=== PATIENT | male | born 1990 | race Caucasian/White ===

== ENCOUNTER 2022-05-20 18:55 | Emergency (ER) | payer OTHER ==
[2022-05-20] MEDS ORDERED: Ondansetron 4 MG/2 ML SDV IVPUSH ONE (20:49)
[2022-05-20] MEDS ORDERED: Sodium Chloride 0.9% 10 ML Syringe FLUSH PRN (20:49)
[2022-05-20] MEDS ORDERED: Sodium Chloride 0.9% 1,000 ML IV SCH (21:00)
[2022-05-20] MEDS ORDERED: Ketorolac 30 MG/ML SDV IVPUSH ONE (21:10)
[2022-05-20 21:36] LABS: ESTIMATED GFR 122 mL/min (>60)
[2022-05-21] MEDS ORDERED: Doxycycline Monohydrate 100 MG Cap PO ONE (00:46)
[2022-05-21 00:57] LABS: C. TRACHOMATIS BY PCR NOT DETECTED; N. GONORRHOEAE BY PCR NOT DETECTED
== END 2022-05-21 01:05 | disposition home or self-care (01) ==
LOC: JD.ED 18:55
DX: N50.811 Right testicular pain (principal)
CPT/HCPCS: 36415; 76870; 80053; 81001; 83690; 83735; 85025; 86140; 87491; 87591; 93975; 96361; 96374; 96375; 99284; A9270; J1885; J2405; J3490; J7030

== ENCOUNTER 2024-10-06 12:21 | Emergency (ER) | payer BC, OTHER ==
[2024-10-06] MEDS: Ketorolac 30 MG/ML SDV IVPUSH ONE (13:05)
[2024-10-06] MEDS: Acetaminophen/HYDROcodone 325-5 MG Tab PO ONE (14:06)
== END 2024-10-06 14:40 | disposition home or self-care (01) ==
LOC: JD.ED 12:21
DX: S93.401A Sprain of unspecified ligament of right ankle, initial encounter (principal); S93.402A Sprain of unspecified ligament of left ankle, initial encounter; W11.XXXA Fall on and from ladder, initial encounter; Y93.89 Activity, other specified; Y99.0 Civilian activity done for income or pay
CPT/HCPCS: 73610; 96374; 99283; A9270; J1885